=== PATIENT | male | born 1980 | race Caucasian/White ===

== ENCOUNTER 2020-01-11 06:10 | Inpatient (IN) | payer OTHER ==
[2020-01-11 06:32] VITALS: BMI 24.4
--- OUTSIDE RECORDS SUMMARY | 2020-01-11 06:48 | XMS ---
:1980 Author Organization [facility] Care Team Providers Name Role Phone EMERGENCY SERVICE, X Unavailable Unavailable VINEET BALL Unavailable Unavailable Re-disclosure Warning The records that you are about to access may contain information from federally- assisted alcohol or drug abuse programs. If such information is present, then the following federally mandated warning applies: This information has been disclosed to you from records protected by federal confidentiality rules (42 CFR part 2). The federal rules prohibit you from making any further disclosure of this information unless further disclosure is expressly permitted by the written consent of the person to whom it pertains or as otherwise permitted by 42 CFR part 2. A general authorization for the release of medical or other information is NOT sufficient for this purpose. The Federal rules restrict any use of the information to criminally investigate or prosecute any alcohol or drug abuse patient.The records that you are about to access may contain highly sensitive health information, the redisclosure of which is protected by Article 27-F of the [facility] Public Health law. If you continue you may haveaccess to information: Regarding HIV / AIDS; Provided by facilities licensed or operated by the [facility] Office of Mental Health; or Provided by the [facility] Office for People With Developmental Disabilities. If such information is present, then the following [facility] mandated warning applies: This information has been disclosed to you from confidential records which are protected by state law. State law prohibits you from making any further disclosure of this information without the specific written consent of the person to whom it pertains, or as otherwise permitted by law. Any unauthorized further disclosure in violation of state law may result in a fine or shelter sentence or both. A general authorization for the release of medical or other information is NOT sufficient authorization for further disclosure. Encounters Encounter Providers Location Date Indications Data Source(s ) Emergency Attender: 09/05/2019 LOWER BACK PAIN [facility] er [facility] LIZZY, 04:51:00 PM Health Care SCOTTAttender: EDT Corporatio n EMERGENCY SERVICE, XAdmitter: VINEET BALL LOWER BACK PAIN Medications Medication Brand Start Product Dose Route Administrative Pharmacy [facility] Indications Reaction Description Data Name Date Form Instructions Instructions Source(s) Levsin/SL UNK complet Levsin/SL [place] 0.125 MG 2020 MG ed 0.125 MG r Count y Sublingual 08:36: Sublingual H ealth 49 PM Tablet Care EDT Sublingual Corporati o PLACE 1 n TABLET UNDER THE TONGUE EVERY 4 TO 6 HOURS NEEDED. Dispense: 18 Ondansetron UNK complet Ondanset forest [place] 4 MG Oral 2020 MG ed 4 MG Oral r Cou nty Tablet D 08:36: Tablet Health 49 PM Disintegrati Care EDT ng TAKE 1 Corporatio TABLET EVERY n 6 TO 8 HOURS NEEDED FOR PAIN. Dispense: 8 Tylenol Tyleno 999 UNK active Tylenol [place] Infusion l 2020 mg Infusion r Count y (AD Infusi 07:58: (ADULT) or Healt h on (AD 04 PM GT 50 kg Care EDT 1000 mg IVPB Corpora courtney n Medication administered onsite Toradol 30 Toradol 30 09/05/2019 15 mg UNK active Toradol 30 [facility] mg/mL (Ke mg/mL (Ke 05:11:02 PM mg/ mL [facility] EDT (Ketorolac) Care Injection Corporatio n Give 15 mg IVP Medication administered onsite Zofran Zofran 09/05/2019 4 mg UNK active Zofran 4mg/2mL [facility] [facility] 4mg/2mL 4mg/2mL 05:11:02 PM (Ondans etron) [facility] (Onda (Onda EDT Injection Give Car e 4 mg IVP Corporation Medication administered onsite 0.9% 0.9% 09/05/2019 1000 mL UNK active 0.9% NaC l [facility] [facility] NaCl IV NaCl IV 05:11:02 PM IV Give [facility] EDT 1000 mL; IV Care rate: Corporation Bolus over 30 minutes Medication administered onsite Omeprazole 10 Prilosec 999 MG oral completed [facility]osec [facility] Oral Care Capsule Corporation [Prilosec] Not Taking Not Taking 999 MG UNK discontinued Not Taking [facility] Home Meds Home Meds Home [facility] Insurance Providers Payer name Policy type Policy ID Covered Covered alliance party's Policy P pravin / Coverage alliance party ID relationship to [employer] Inf ormation type tapia MEDICAID [id number] SP [id number] HEALTH [id number] SP [id number] SOLUTIONS 1 HEALTH [id number] SP [id number] SOLUTIONS 1 SELF PAY SP INSURANCE Problems, Conditions, and Diagnoses Code Display Name Description Problem Type Effective Data Sour ce(s) Dates N50.819 Testicular pain, TESTICULAR PAIN, Diagnosis 09/05/2019 [facility] unspecified UNSPECIFIED 04:51:00 [facility] EDT Care Corporati on N20.0 Calculus of CALCULUS OF Diagnosis 09/05/2019 [facility] kidney KIDNEY 04:51:00 [facility] EDT Care Corporati on R10.9 Unspecified UNSPECIFIED Diagnosis 09/05/2019 [facility] abdominal pain ABDOMINAL PAIN 04:51:00 PM [facility] EDT Care Corporati on Patient Treatment Plan of Care Planned Activity Planned Date Details Description Data Source (s) Tylenol Infusion (AD 09/05/2019 07:58:04 [facility] Cor poration 0.9% NaCl IV 09/05/2019 05:11:02 [facility] Cor poration Zofran 4mg/2mL (Onda 09/05/2019 05:11:02 [facility] Health Care Cor poration Toradol 30 mg/mL (Ke 09/05/2019 05:11:02 [facility] Cor poration
--- NOTE | 2020-01-11 07:30 | PDOC ---
History of Present Illness - General Chief Complaint: Back Pain Stated Complaint: PAIN Time Seen by Provider: 01/11/20 07:22 History Source: Patient - History of Present Illness Occurred: reports: other Pain Location: reports: back Past History - Medical History Allergies/Adverse Reactions: Allergies Allergy/AdvReac Type Severity Reaction Status Date / Time coffee (Coffea arabica) Allergy Verified 09/22/19 06:52 Home Medications: Ambulatory Orders Cyclobenzaprine HCl [Flexeril 10 mg] 10 mg PO HS #7 tablet 01/11/20 Naproxen 500 mg PO BID #14 tablet 01/11/20 Anemia: No Asthma: No Cancer: No Cardiac Disorders: No CVA: No COPD: No CHF: No Dementia: No Diabetes: No GI Disorders: No Disorders: Yes (KIDNEY STONES) HTN: No Hypercholesterolemia: No Liver Disease: No Seizures: No Thyroid Disease: No - Psycho-Social/Smoking History Smoking History: Smoker current status UNK Have you smoked in the past 12 months: No - Substance Abuse Hx (Audit-C & DAST Scrn) In the last yr the pt used illegal drug/Rx for NonMed reason: No Score: Yes response is considered Positive: 0 Screen Result (Positive result requires Nsg. DAST-10): Negative Review of Systems - Review of Systems Constitutional: No: Chills, Fever ABD/GI: No: Constipated, Diarrhea, Nausea, Vomiting, Abdominal cramping : No: Dysuria Musculoskeletal: Yes: Back Pain Neurological: No: Numbness, Tingling, Weakness *Physical Exam - Vital Signs Last Vital Signs Temp Pulse Resp BP Pulse Ox 98.0 F 81 15 133/83 100 01/11/20 06:28 01/11/20 06:28 01/11/20 06:28 01/11/20 06:28 01/11/20 06:28 - Physical Exam General Appearance: Yes: Appropriately Dressed. No: Apparent Distress HEENT: positive: Normal Voice Neck: positive: Supple Respiratory/Chest: negative: Respiratory Distress Gastrointestinal/Abdominal: positive: Soft. negative: Tender Musculoskeletal: positive: Vertebral Tenderness (to R lower back, reports pain w/ ROM). 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 Pain, 8/10, hurts to touch and with movement but states pain may be similar to prior renal colic. Took pain medication last night which relieved symptoms but does not remember name. No nausea, vomiting, fever, chills, hematuria or dysuria. Patient s/p dilatation of R ureteral stricture ~3 months ago and states he followed up with 1 month ago and told "I have a stone in my right kidney" on CT and was told that he may need another surgery as he is unlikely to pass that stone. see exam R LBP Suspect MSK, r/o renal colic given hx above Exam only remarkable for very reproducible pain to R lower pain -pain control -labs/ua -CT 01/11/20 10:03 Labs and UA wnl. CT w/ 4x2 mm non-obs stone to R kidney, no ureteral stone. Pt reports feeling better w/ meds. To continue f/u with his as needed Discharge - Discharge Information Problems reviewed: Yes Clinical Impression/Diagnosis: Lower back pain Qualifiers: Chronicity: acute Back pain laterality: right Sciatica presence: without sciatica Qualified Code(s): M54.5 - Low back pain Condition: Improved Disposition: HOME - Additional Discharge Information Prescriptions: Cyclobenzaprine HCl [Flexeril 10 mg] 10 mg PO HS #7 tablet Naproxen 500 mg PO BID #14 tablet - Follow up/Referral - Patient Discharge Instructions Patient Printed Discharge Instructions: Low Back Pain Additional Instructions: Melendez TAC muestra un clculo no obstructivo en melendez rin derecho. Los clculos en el rin en s no causan dolor a menos que comiencen a viajar hacia el urter. Melendez anlisis de tiffany y orina tambin fue normal hoy. Lo ms probable es que melendez dolor de espalda actual sea muscular y no tenga nada que michael con melendez clculo renal. Enviamos medicamentos a melendez farmacia, tmelos segn las indicaciones Contine con el seguimiento con marito mdicos - Post Discharge Activity Work/Back to School Note: Back to Work
[2020-01-11] MEDS ORDERED: KETOROLAC TROMETHAMINE 30 MG/1 ML VIAL IVPUSH ONE (07:33)
[2020-01-11] MEDS ORDERED: KETOROLAC TROMETHAMINE 30 MG/1 ML VIAL ONE ×2 (07:48→12:40)
[2020-01-11 07:52] LABS: BASO % 0.5 % (0-2.0); EOS % 1.7 % (0-4.5); HEMATOCRIT 45.4 % (35.4-49); HEMOGLOBIN 15.4 GM/dL (11.7-16.9); LYMPH % 20.1 % (8-40); MCH 30.3 pg (25.7-33.7); MCHC 33.8 g/dl (32.0-35.9); MEAN CELL VOLUME 89.7 fl (80-96); MEAN PLT VOLUME 8.8 fl (7.5-11.1); MONO % 7.2 % (3.8-10.2); NEUT % 70.5 % (42.8-82.8); PLATELET COUNT 155 K/MM3 (134-434); RBC 5.06 M/mm3 (4.00-5.60); RDW 12.8 % (11.9-15.9); WHITE BLOOD COUNT 4.9 K/mm3 (4.0-10.0)
[2020-01-11 08:22] LABS: ALBUMIN 4.1 g/dl (3.4-5.0); BILIRUBIN,TOTAL 0.4 mg/dL (0.2-1); CALCIUM 8.7 mg/dL (8.5-10.1); CREATININE 0.7 mg/dL (0.55-1.3); POTASSIUM 4.4 mmol/L (3.5-5.1); TOT PROT 7.3 g/dl (6.4-8.2)
[2020-01-11 08:55] LABS: PH,URINE 6.5 (5.0-8.0); URINE APPEARANCE CLEAR; URINE BILIRUBIN NEGATIVE (NEGATIVE); URINE COLOR YELLOW; URINE GLUCOSE (UA) NEGATIVE (NEGATIVE); URINE KETONE NEGATIVE (NEGATIVE); URINE LEUK ESTERASE NEGATIVE (NEGATIVE); URINE NITRITE NEGATIVE (NEGATIVE); URINE PROTEIN NEGATIVE (NEGATIVE); URINE UROBILINOGEN 0.2 mg/dL (0.2-1.0)
--- NOTE | 2020-01-11 10:18 | PDOC ---
*Physical Exam - Vital Signs Last Vital Signs Temp Pulse Resp BP Pulse Ox 98.0 F 81 15 133/83 100 01/11/20 06:28 01/11/20 06:28 01/11/20 06:28 01/11/20 06:28 01/11/20 06:28 - Physical Exam General Appearance: Yes: Appropriately Dressed. No: Apparent Distress HEENT: positive: Normal Voice Neck: positive: Supple Respiratory/Chest: negative: Respiratory Distress Gastrointestinal/Abdominal: positive: Soft. negative: Tender Musculoskeletal: negative: CVA Tenderness Integumentary: positive: Dry, Warm Neurologic: positive: Fully Oriented, Alert, Normal Mood/Affect ED Treatment Course - LABORATORY CBC & Chemistry Diagram: 01/11/20 07:40 01/11/20 07:40 - ADDITIONAL ORDERS Additional order review: Laboratory Results 01/11/20 01/11/20 08:30 07:40 Sodium 141 Potassium 4.4 Chloride 107 Carbon Dioxide 30 Anion Gap 4 L BUN 13.0 Creatinine 0.7 Est GFR (CKD-EPI)AfAm 138.75 Est GFR (CKD-EPI)NonAf 119.71 Random Glucose 101 Calcium 8.7 Total Bilirubin 0.4 AST 13 L ALT 41 Alkaline Phosphatase 57 Total Protein 7.3 Albumin 4.1 Urine Color Yellow Urine Appearance Clear Urine pH 6.5 Ur Specific [place] 1.014 Urine Protein Negative Urine Glucose (UA) Negative Urine Ketones Negative Urine Blood Negative Urine Nitrite Negative Urine Bilirubin Negative Urine Urobilinogen 0.2 Ur Leukocyte Esterase Negative 01/11/20 07:40 RBC 5.06 MCV 89.7 MCHC 33.8 RDW 12.8 MPV 8.8 Neutrophils % 70.5 Lymphocytes % 20.1 Monocytes % 7.2 Eosinophils % 1.7 Basophils % 0.5 - RADIOLOGY Radiology Studies Ordered: Category Date Time Status ABDOMEN & PELVIS CT W/O CONTR [CT] Stat CT Scan 01/11/20 07:33 Completed - Medications Given in the ED: ED Medications Discontinued Medications Generic Name Dose Route Start Last Admin Trade Name Freq PRN Reason Stop Dose Admin Ketorolac Tromethamine 30 mg 01/11/20 07:33 01/11/20 07:45 Toradol Injection - IVPUSH 01/11/20 07:34 30 mg ONCE ONE Administration Medical Decision Making - Medical Decision Making 01/11/20 10:16 Upon discharge, pt's , Dr Travis, contacted me to inform me that he sent patient in to be admitted for a stent placement to the left ureter, which pt did not mention to ED staff earlier. Per MD, ultrasound done in office yesterday showed possible hydro, though MD made aware that no ureteral stone/hydro on today's CT. Plan is to stent patient today, especially given history of recent ureteral stricture that was dilated 09/24. Wants pre-op lab and rapid COVID testing. Last po intake 10pm last night per pt. States patient to go to hospitalist 1 Discharge - Discharge Information Problems reviewed: Yes Clinical Impression/Diagnosis: Renal stone Lower back pain Qualifiers: Chronicity: acute Back pain laterality: right Sciatica presence: without sciatica Qualified Code(s): M54.5 - Low back pain Condition: Improved - Admission Yes - Additional Discharge Information Prescriptions: Cyclobenzaprine HCl [Flexeril 10 mg] 10 mg PO HS #7 tablet Naproxen 500 mg PO BID #14 tablet - Follow up/Referral - Patient Discharge Instructions Patient Printed Discharge Instructions: Low Back Pain Additional Instructions: Melendez TAC muestra un clculo no obstructivo en melendez rin derecho. Los clculos en el rin en s no causan dolor a menos que comiencen a viajar hacia el urter. Melendez anlisis de tiffany y orina tambin fue normal hoy. Lo ms probable es que melendez dolor de espalda actual sea muscular y no tenga nada que michael con melendez clculo renal. Enviamos medicamentos a melendez farmacia, tmelos segn las indicaciones Contine con el seguimiento con marito mdicos - Post Discharge Activity Work/Back to School Note: Back to Work
[2020-01-11 10:56] LABS: INR 1.03 (0.83-1.09); PROTHROMBIN TIME (PATIENT) 12.1 SEC (9.7-13.0)
--- NOTE | 2020-01-11 11:46 | CONSULT ---
Consult - text type - Consultation Consultation Note: 39 yo male s/p prior ureteroscopy and laswer lithotripsy at which time a ureteral stricture was identified Pt had severe right colic yesterday at which time he had hydronephrosis on sonogram Pt w persistent flank pain Plan for ureteroscopy laser lithotripsy ureteral dilation and stent placement
--- NOTE | 2020-01-11 12:08 | PDOC ---
*Physical Exam - Vital Signs Last Vital Signs Temp Pulse Resp BP Pulse Ox 98.4 F 60 16 121/76 100 01/11/20 11:29 01/11/20 11:29 01/11/20 11:29 01/11/20 11:29 01/11/20 11:29 ED Treatment Course - LABORATORY CBC & Chemistry Diagram: 01/11/20 07:40 01/11/20 07:40 - ADDITIONAL ORDERS Additional order review: Laboratory Results 01/11/20 01/11/20 08:30 07:40 Sodium 141 Potassium 4.4 Chloride 107 Carbon Dioxide 30 Anion Gap 4 L BUN 13.0 Creatinine 0.7 Est GFR (CKD-EPI)AfAm 138.75 Est GFR (CKD-EPI)NonAf 119.71 Random Glucose 101 Calcium 8.7 Total Bilirubin 0.4 AST 13 L ALT 41 Alkaline Phosphatase 57 Total Protein 7.3 Albumin 4.1 Urine Color Yellow Urine Appearance Clear Urine pH 6.5 Ur Specific [place] 1.014 Urine Protein Negative Urine Glucose (UA) Negative Urine Ketones Negative Urine Blood Negative Urine Nitrite Negative Urine Bilirubin Negative Urine Urobilinogen 0.2 Ur Leukocyte Esterase Negative 01/11/20 07:40 RBC 5.06 MCV 89.7 MCHC 33.8 RDW 12.8 MPV 8.8 Neutrophils % 70.5 Lymphocytes % 20.1 Monocytes % 7.2 Eosinophils % 1.7 Basophils % 0.5 - Medications Given in the ED: ED Medications Discontinued Medications Generic Name Dose Route Start Last Admin Trade Name Freq PRN Reason Stop Dose Admin Ketorolac Tromethamine 30 mg 01/11/20 07:33 01/11/20 07:45 Toradol Injection - IVPUSH 01/11/20 07:34 30 mg ONCE ONE Administration Medical Decision Making - Medical Decision Making 01/11/20 12:08 Patient seen and evaluated with the nurse practitioner. I agree with the overall evaluation, assessment, and management with the following summary of visit: 39-year-old male with history of ureteral strictures presents with flank pain and plan for stent dilatation. Labs, urinalysis CT of the abdomen and pelvis Admit, Dr. Saba consulted Discharge - Discharge Information Problems reviewed: Yes Clinical Impression/Diagnosis: Renal stone Lower back pain Qualifiers: Chronicity: acute Back pain laterality: right Sciatica presence: without sciatica Qualified Code(s): M54.5 - Low back pain Condition: Improved - Additional Discharge Information - Follow up/Referral - Patient Discharge Instructions - Post Discharge Activity
[2020-01-11] MEDS ORDERED: PROPOFOL 20 ML ONE (12:27)
[2020-01-11] MEDS ORDERED: LIDOCAINE HCL/PF 2% SDV 5ML VIAL ONE (12:27)
[2020-01-11] MEDS ORDERED: SODIUM CHLORIDE 0.9% P/F 10 ML VIAL IJ ONE (12:32)
[2020-01-11] MEDS ORDERED: ceFAZolin SODIUM 1 GM VIAL ONE (12:32)
[2020-01-11] MEDS ORDERED: ceFAZolin SODIUM 1 GM VIAL IVPB ONE (12:36)
[2020-01-11] MEDS ORDERED: DEXAMETHASONE SOD PHOSPHATE 4 MG/1 ML VIAL ONE (12:40)
[2020-01-11] MEDS ORDERED: MIDAZOLAM HCL 2 MG/2 ML SINGLE DOSE VIAL ONE (13:01)
[2020-01-11] MEDS ORDERED: oxyCODONE HCL 5 MG TABLET PO PRN (13:13)
[2020-01-11] MEDS ORDERED: PROMETHAZINE HCL 25 MG/1 ML VIAL IVPUSH PRN (13:13)
[2020-01-11] MEDS ORDERED: ONDANSETRON 4 MG/2 ML VIAL IVPUSH PRN (13:13)
[2020-01-11] MEDS ORDERED: LACTATED RINGERS SOLUTION 1,000 ML IV SCH (13:15)
--- NOTE | 2020-01-11 14:00 | HP ---
CHIEF COMPLAINT: flank pain PCP: HISTORY OF PRESENT ILLNESS: Patient is a 39 year old male with no reported medical history presents with complaint of flank pain. Ongoing for past several days without clear inciting features. Attempted taking Tylenol as palliative measure, which was minimally palliative. He was seen by Dr. Travis and had sonogram that reveal hydronephrosis. He was told to proceed to ED for admission and stent placement. Patient denies subjective fevers, chillls, shortness of breath, chest pain, palpitations, abdominal pain, nausea, or vomiting. Patient was evaluated in PACU, postoperatively. 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 Lives in apartment. Independent in activities daily living Smoking: denies smoking cigarettes Alcohol: denies alcohol consumption Drugs: endorses occasional marijuana Allergies coffee (Coffea arabica) Allergy (Verified 09/22/19 06:52) HOME MEDICATIONS: Home Medications Medication Instructions Recorded Cyclobenzaprine HCl [Flexeril 10 10 mg PO HS #7 tablet 01/11/20 mg] Naproxen 500 mg PO BID #14 tablet 01/11/20 REVIEW OF SYSTEMS As per HPI PHYSICAL EXAMINATION Vital Signs - 24 hr 01/11/20 01/11/20 01/11/20 06:28 10:56 11:29 Temperature 98.0 F 98.4 F Pulse Rate 81 Pulse Rate [ 60 Left Radial] Respiratory 15 16 Rate Blood Pressure 133/83 Blood Pressure 121/76 [Right Arm] O2 Sat by Pulse 100 100 100 Oximetry (%) GENERAL: Awake, alert, and fully oriented, in no acute distress. HEAD: Normal with no signs of trauma. EYES: Pupils equal, round and reactive to light, extraocular movements intact, sclera anicteric, conjunctiva clear. No lid lag. EARS, NOSE, THROAT: Ears normal, nares patent, oropharynx clear without exudates. Moist mucous membranes. NECK: Normal range of motion, supple without lymphadenopathy, JVD, or masses. LUNGS: Breath sounds equal, clear to auscultation bilaterally. No wheezes, and no crackles. No accessory muscle use. HEART: Regular rate and rhythm, normal S1 and S2 without murmur, rub or gallop. ABDOMEN: Soft, nontender, not distended, normoactive bowel sounds, no guarding, no rebound, no masses. No hepatomegaly or splenomegaly. MUSCULOSKELETAL: Normal range of motion at all joints. No bony deformities or tenderness. No CVA tenderness. UPPER EXTREMITIES: 2+ pulses, warm, well-perfused. No cyanosis. No clubbing. No peripheral edema. LOWER EXTREMITIES: 2+ pulses, warm, well-perfused. No calf tenderness. No peripheral edema. NEUROLOGICAL: Cranial nerves II-XII intact. Normal speech. Normal gait. PSYCHIATRIC: Cooperative. Good eye contact. Appropriate mood and affect. SKIN: Warm, dry. Laboratory Results - last 24 hr 01/11/20 01/11/20 01/11/20 07:40 07:40 08:30 WBC 4.9 RBC 5.06 Hgb 15.4 Hct 45.4 MCV 89.7 MCH 30.3 MCHC 33.8 RDW 12.8 Plt Count 155 MPV 8.8 Absolute Neuts (auto) 3.5 Neutrophils % 70.5 Lymphocytes % 20.1 Monocytes % 7.2 Eosinophils % 1.7 Basophils % 0.5 Nucleated RBC % 0 PT with INR INR Sodium 141 Potassium 4.4 Chloride 107 Carbon Dioxide 30 Anion Gap 4 L BUN 13.0 Creatinine 0.7 Est GFR (CKD-EPI)AfAm 138.75 Est GFR (CKD-EPI)NonAf 119.71 Random Glucose 101 Calcium 8.7 Total Bilirubin 0.4 AST 13 L ALT 41 Alkaline Phosphatase 57 Total Protein 7.3 Albumin 4.1 Urine Color Yellow Urine Appearance Clear Urine pH 6.5 Ur Specific [place] 1.014 Urine Protein Negative Urine Glucose (UA) Negative Urine Ketones Negative Urine Blood Negative Urine Nitrite Negative Urine Bilirubin Negative Urine Urobilinogen 0.2 Ur Leukocyte Esterase Negative SARS-CoV-2 (PCR) Blood Type Antibody Screen 01/11/20 01/11/20 01/11/20 10:25 10:25 10:25 WBC RBC Hgb Hct MCV MCH MCHC RDW Plt Count MPV Absolute Neuts (auto) Neutrophils % Lymphocytes % Monocytes % Eosinophils % Basophils % Nucleated RBC % PT with INR 12.10 INR 1.03 Sodium Potassium Chloride Carbon Dioxide Anion Gap BUN Creatinine Est GFR (CKD-EPI)AfAm Est GFR (CKD-EPI)NonAf Random Glucose Calcium Total Bilirubin AST ALT Alkaline Phosphatase Total Protein Albumin Urine Color Urine Appearance Urine pH Ur Specific [place] Urine Protein Urine Glucose (UA) Urine Ketones Urine Blood Urine Nitrite Urine Bilirubin Urine Urobilinogen Ur Leukocyte Esterase SARS-CoV-2 (PCR) Negative Blood Type A POSITIVE Antibody Screen Negative ASSESSMENT/PLAN: Patient is a 39 year old male with no reported medical history presents with right flank pain. Ureteral stricture -CT abdomen pelvis reveals 4 x 2mm non obstructing renal calculus. Negative hydronephrosis -Urology recommendations appreciated. Patient is s/p ureteroscopy dilation of ureteral stricture. Right hydronephrosis and ureteral stricture -Gentle hydration with IV normal saline -Pain control with Acetaminophen, Morphine -Follow intake, output -Urology recommendations appreciated (Dr. Travis) FEN -IV normal saline -Follow BMP -NPO Prophylaxis -SCDs b/l lower extremities Admit to medical-surgical floor Family Medical History Family History: Unremarkable Visit type - Emergency Visit Emergency Visit: Yes ED Registration Date: 01/11/20 Care time: The patient presented to the Emergency Department on the above date and was hospitalized for further evaluation of their emergent condition. - New Patient This patient is new to me today: Yes Date on this admission: 01/11/20 - Critical Care Critical Care patient: No ATTENDING PHYSICIAN STATEMENT I saw and evaluated the patient. I reviewed the resident's note and discussed the case with the resident. I agree with the resident's findings and plan as documented. SUBJECTIVE: OBJECTIVE: ASSESSMENT AND PLAN:
[2020-01-11 14:33] VITALS: TEMP 97.8
--- NOTE | 2020-01-11 14:58 | OP ---
Operative Note - Note: Operative Date: 01/11/20 Pre-Operative Diagnosis: Ureteral stricture Operation: ureteroscopy dilation of ureteral stricture retrograde Findings: Right hydronephrosis and ureteral stricture Post-Operative Diagnosis: Same as Pre-op Surgeon: Jose Travis MD. Anesthesia: General Operative Report Dictated: Yes
[2020-01-11] MEDS ORDERED: ELECTROLYTE-148 SOLN 1,000 ML IV SCH (15:00)
[2020-01-11] MEDS ORDERED: ACETAMINOPHEN 325 MG TABLET (FP) ONE (15:52)
[2020-01-11 17:14] VITALS: BP 117/75; PULSE 70
--- NOTE | 2020-01-11 18:15 | DS ---
Physical Exam: SUBJECTIVE: Patient seen and examined in PACU, Discussed case with Dr. Travis, who has discharged the patient. OBJECTIVE: Vital Signs Period Temp Pulse Resp BP Sys/Gordon Pulse Ox Last 24 Hr 97.8 F-98.4 F 59-81 11-20 103-133/64-85 99-100 PHYSICAL EXAM GENERAL: The patient is awake, alert, and fully oriented, in no acute distress. HEAD: Normal with no signs of trauma. EYES: PERRL, extraocular movements intact, sclera anicteric, conjunctiva clear. ENT: Ears normal, nares patent, oropharynx clear without exudates, moist mucous membranes. NECK: Trachea midline, full range of motion, supple. LUNGS: Breath sounds equal, clear to auscultation bilaterally, no wheezes, no crackles, no accessory muscle use. HEART: Regular rate and rhythm, S1, S2 without murmur, rub or gallop. ABDOMEN: Soft, nontender, nondistended, normoactive bowel sounds, no guarding, no rebound, no hepatosplenomegaly, no masses. EXTREMITIES: 2+ pulses, warm, well-perfused, no edema. NEUROLOGICAL: Cranial nerves II through XII grossly intact. Normal speech, gait not observed. PSYCH: Normal mood, normal affect. SKIN: Warm, dry, normal turgor, no rashes or lesions noted. LABS Laboratory Results - last 24 hr 01/11/20 01/11/20 01/11/20 07:40 07:40 08:30 WBC 4.9 RBC 5.06 Hgb 15.4 Hct 45.4 MCV 89.7 MCH 30.3 MCHC 33.8 RDW 12.8 Plt Count 155 MPV 8.8 Absolute Neuts (auto) 3.5 Neutrophils % 70.5 Lymphocytes % 20.1 Monocytes % 7.2 Eosinophils % 1.7 Basophils % 0.5 Nucleated RBC % 0 PT with INR INR Sodium 141 Potassium 4.4 Chloride 107 Carbon Dioxide 30 Anion Gap 4 L BUN 13.0 Creatinine 0.7 Est GFR (CKD-EPI)AfAm 138.75 Est GFR (CKD-EPI)NonAf 119.71 Random Glucose 101 Calcium 8.7 Total Bilirubin 0.4 AST 13 L ALT 41 Alkaline Phosphatase 57 Total Protein 7.3 Albumin 4.1 Urine Color Yellow Urine Appearance Clear Urine pH 6.5 Ur Specific [place] 1.014 Urine Protein Negative Urine Glucose (UA) Negative Urine Ketones Negative Urine Blood Negative Urine Nitrite Negative Urine Bilirubin Negative Urine Urobilinogen 0.2 Ur Leukocyte Esterase Negative SARS-CoV-2 (PCR) Blood Type Antibody Screen 01/11/20 01/11/20 01/11/20 10:25 10:25 10:25 WBC RBC Hgb Hct MCV MCH MCHC RDW Plt Count MPV Absolute Neuts (auto) Neutrophils % Lymphocytes % Monocytes % Eosinophils % Basophils % Nucleated RBC % PT with INR 12.10 INR 1.03 Sodium Potassium Chloride Carbon Dioxide Anion Gap BUN Creatinine Est GFR (CKD-EPI)AfAm Est GFR (CKD-EPI)NonAf Random Glucose Calcium Total Bilirubin AST ALT Alkaline Phosphatase Total Protein Albumin Urine Color Urine Appearance Urine pH Ur Specific [place] Urine Protein Urine Glucose (UA) Urine Ketones Urine Blood Urine Nitrite Urine Bilirubin Urine Urobilinogen Ur Leukocyte Esterase SARS-CoV-2 (PCR) Negative Blood Type A POSITIVE Antibody Screen Negative HOSPITAL COURSE: Date of Admission:01/11/20 Date of Discharge: 01/11/20 Patient is a 39 year old male with no reported medical history presented with complaint of right flank pain. CT abdomen pelvis reveals 4 x 2mm non obstructing renal calculus. Negative hydronephrosis. Noted that patient had prior sonogram that revealed hydronephrosis day prior to admission. Evaluated by urology and underwent ureteroscopy with dilation of ureteral stricture. Right hydronephrosis and ureteral stricture noted. Patient is passing urine, and tolerating oral intake, and ambulating. Case discussed with Dr. Travis and patient discharged. Follow up with primary care physician, and urologist. Minutes to complete discharge: 36 Discharge Summary Problems reviewed: Yes Reason For Visit: CALCULUS OF KIDNEY Condition: Good - Instructions Diet, Activity, Other Instructions: You were admitted to the hospital for pain and difficulty urinating. You were evaluated by the Urologist and underwent surgery to place a stent within your urinary tract to relieve stricture that was contributing to your pain. You are stable for discharge home. Continue taking your home medications as directed Drink copious fluids Follow up with your primary care physician within one -two days after discharge. A referral to Dr Webster has been provided. Follow up with Urologist Dr. Travis within two-three weeks. A referral has been provided. Return to the nearest emergency department if you experience worsening symptoms, subjective fevers, chills, shortness of breath, chest pain, palpitations, abdominal pain, nausea, vomiting, any trauma or loss of consciousness. drink copious fluids Follow in office 3 weeks Referrals: Tejinder Webster MD [Staff Physician] - Jose Travis MD., [Staff Physician] - 2 Weeks Disposition: HOME This patient is new to me today: Yes Date on this admission: 01/11/20 Emergency Visit: Yes ED Registration Date: 01/11/20 Care time: The patient presented to the Emergency Department on the above date and was hospitalized for further evaluation of their emergent condition. Critical Care patient: No - Discharge Referral Referred to [facility] No ATTENDING PHYSICIAN STATEMENT I saw and evaluated the patient. I reviewed the resident's note and discussed the case with the resident. I agree with the resident's findings and plan as documented. SUBJECTIVE: OBJECTIVE: ASSESSMENT AND PLAN:
--- NOTE | 2020-01-12 08:48 | OP ---
DATE OF OPERATION: 01/11/2020 PREOPERATIVE DIAGNOSIS: Right ureteral stricture, right hydronephrosis. POSTOPERATIVE DIAGNOSIS: Right ureteral stricture, right hydronephrosis. PROCEDURE: Ureteroscopy, retrograde ureteropyelogram, and dilation of right ureteral stricture. HISTORY: This is a very pleasant 39-year-old gentleman with a long history of renal calculi with impacted right ureteral stricture for years. Patient is status post right lithotripsy endoscopically with ureteroscopy, at which time he was found to have a ureteral stricture. Patient currently has persistent right flank pain directly at the kidney. He was found to have mild hydronephrosis on the right side on renal sonogram; however, CT scan did not report hydronephrosis. The films were equivocal. After discussing treatment options including persistent observation, patient elected to undergo the above-stated procedure. Risks and benefits of treatment alternatives were discussed in detail. All questions were answered. DESCRIPTION OF PROCEDURE: Patient brought to the operating room, placed in supine position where general anesthesia was administered. Patient transferred to dorsal lithotomy position, prepped and draped in the standard sterile fashion. Intravenous antibiotics were given. At this time a 22-Faroese cystoscope sheath was placed into the bladder under direct vision. The bladder was unremarkable. A 0.038 guidewire was passed into the renal pelvis, confirmed fluoroscopically. At this time, retrograde contrast was injected. There was blunting of the lower and upper pole calices. The middle pole calices were rather unremarkable. The area of the midureter also did not fill out, as did the other segments of the ureter. At this time a second Amplatz wire was then passed into the lumen. The ureter was dilated then using sequential dilator to 12-Faroese. A 7-Faroese 22-cm double-J stent was then placed over the guidewire and fluoroscopically confirmed to be in normal position. Patient brought to the recovery room in stable and satisfactory condition. Jesse [id number]
--- NOTE | 2020-01-13 18:35 | PN ---
Teaching Attending Note Name of Resident: Deandre Nguyen ATTENDING PHYSICIAN STATEMENT I saw and evaluated the patient. I reviewed the resident's note and discussed the case with the resident. I agree with the resident's findings and plan as documented. SUBJECTIVE: patient seen and examined at bedside, admtited for R renal stone, needing ESWL, following w/ Urology. VSS. OBJECTIVE: GA mild distress, AAox3 HEENT NC/At, EOMI, neck supple Chest CTAB CVS s1, S2+, RRR Abd Soft, NT, ND, Bs+ : R CVA tenderness Ext no LE edema Vital Signs (72 hours) 01/11/20 01/11/20 01/11/20 06:28 10:56 11:29 Temperature 98.0 F 98.4 F Pulse Rate 81 Pulse Rate [ 60 Left Radial] Respiratory 15 16 Rate Blood Pressure 133/83 Blood Pressure 121/76 [Right Arm] O2 Sat by Pulse 100 100 100 Oximetry (%) 01/11/20 01/11/20 01/11/20 13:05 13:15 13:30 Temperature 97.8 F Pulse Rate 61 66 60 Pulse Rate [ Left Radial] Respiratory 11 17 12 Rate Blood Pressure 113/80 103/64 111/76 Blood Pressure [Right Arm] O2 Sat by Pulse 100 100 100 Oximetry (%) 01/11/20 01/11/20 01/11/20 13:45 14:00 14:15 Temperature Pulse Rate 59 L 60 63 Pulse Rate [ Left Radial] Respiratory 12 12 16 Rate Blood Pressure 108/85 119/80 113/72 Blood Pressure [Right Arm] O2 Sat by Pulse 100 100 100 Oximetry (%) 01/11/20 01/11/20 01/11/20 14:30 14:45 15:00 Temperature Pulse Rate 60 67 66 Pulse Rate [ Left Radial] Respiratory 17 20 16 Rate Blood Pressure 110/76 121/74 120/72 Blood Pressure [Right Arm] O2 Sat by Pulse 100 100 100 Oximetry (%) 01/11/20 01/11/20 01/11/20 15:10 15:20 16:50 Temperature 97.8 F 97.8 F Pulse Rate 68 74 70 Pulse Rate [ Left Radial] Respiratory 18 16 18 Rate Blood Pressure 116/72 127/77 117/75 Blood Pressure [Right Arm] O2 Sat by Pulse 100 99 Oximetry (%) Microbiology 01/11/20 08:30 Urine - Urine Clean Catch Urine Culture - Final NO GROWTH OBTAINED ASSESSMENT AND PLAN: 39 M R nephrolithiasis Plan: aggressive IVF pain control w/ opioids Strain urine, flomax NPO [place] Urology following for ureteroscopy DVT ppx: Heparin SC
== END 2020-01-11 16:50 | disposition home or self-care (01) | DRG 465 ==
LOC: JER 06:10 → JERBED 10:18
PROC: 0T768DZ Dilation of Right Ureter with Intraluminal Device, Via Natural or Artificial Opening Endoscopic (ICD-10-PCS; principal; 2020-01-11 12:00)
PROC: BT1DZZZ Fluoroscopy of Right Kidney, Ureter and Bladder (ICD-10-PCS; 2020-01-11 12:00)
DX: N13.1 Hydronephrosis with ureteral stricture, not elsewhere classified (principal); M54.5 Low back pain
CPT/HCPCS: 36415; 74176-TC; 76000-TC-FY; 80053; 81003; 85025; 85610; 86850; 86900; 86901; 87086; 94760; 99285-25; C9803; U0003